=== PATIENT | female | born 1980 | race Caucasian/White ===

== ENCOUNTER → 2016-12-13 | Outpatient (CLI) | payer BC ==
[~2016-12-13] MED LIST: ADDERALL XR20 MG PO; ADDERALL5 MG PO; ASPI325T6 PO; COLACE 100100 MG/CAP PO; CYMBALTA 30MG30 MG PO; CYMBALTA 60MG60 MG PO; DILAUDID 4MG TAB4 MG PO; IMITREX 25MG TA25 MG PO; LEVAQUIN 750MG750 M1 PO; LORTAB 5/500 501 TAB PO; MAXALT5 MG PO; METHADONE H10 MG/TAB PO; MIRENA52 MG IU; PEPCID 20MG TAB20 MG PO; PREDNISONE20 MG PO; PRENATAL VITAMI1 TA5 PO; PRILOSEC 20MG20 MG PO; ULTRAM 50MG TAB50 MG PO; VISTARIL50 MG PO; ZOFRAN 4MG T4 MG/TAB PO; [UNRECOGNIZED DRUG - OTHER]; [UNRECOGNIZED DRUG - OTHER] PO
== END ==
LOC: BHSO 10:13
DX: F33.1 Major depressive disorder, recurrent, moderate (principal)

== ENCOUNTER → 2017-01-18 | Outpatient (CLI) | payer BC | LOC: BHSO 15:13 | DX: F90.0 Attention-deficit hyperactivity disorder, predominantly inattentive type (principal) ==

== ENCOUNTER → 2017-07-26 | Outpatient (CLI) | payer BC | LOC: BHSO 13:15 | DX: F41.1 Generalized anxiety disorder (principal) ==

== ENCOUNTER → 2017-11-14 | Outpatient (CLI) | payer BC | LOC: BHSO 10:21 | DX: F90.0 Attention-deficit hyperactivity disorder, predominantly inattentive type (principal) | CPT/HCPCS: G0463 ==

== ENCOUNTER → 2018-03-06 | Outpatient (CLI) | payer BC | LOC: BHSO 09:04 | DX: F90.0 Attention-deficit hyperactivity disorder, predominantly inattentive type (principal) | CPT/HCPCS: G0463 ==

== ENCOUNTER → 2018-06-07 | Outpatient (CLI) | payer BC | LOC: BHSO 08:57 | DX: F90.0 Attention-deficit hyperactivity disorder, predominantly inattentive type (principal) | CPT/HCPCS: G0463 ==

== ENCOUNTER → 2018-06-15 | Outpatient (CLI) | payer BC | LOC: MC.RAD 15:04 | DX: Z12.31 Encounter for screening mammogram for malignant neoplasm of breast (principal) ==

== ENCOUNTER → 2018-11-23 | Outpatient (CLI) | payer BC | LOC: BHSO 09:37 | DX: F90.0 Attention-deficit hyperactivity disorder, predominantly inattentive type (principal) | CPT/HCPCS: G0463 ==

== ENCOUNTER → 2019-05-17 | Outpatient (CLI) | payer BC | LOC: BHSO 09:39 | DX: F90.0 Attention-deficit hyperactivity disorder, predominantly inattentive type (principal) | CPT/HCPCS: G0463 ==

== ENCOUNTER → 2019-11-20 | Outpatient (CLI) | payer BC | LOC: BHSO 10:00 | DX: F33.41 Major depressive disorder, recurrent, in partial remission (principal) | CPT/HCPCS: G0463 ==

== ENCOUNTER → 2020-04-09 | Outpatient (CLI) | payer BC | LOC: BHSO 15:20 | DX: F33.41 Major depressive disorder, recurrent, in partial remission (principal) | CPT/HCPCS: G0463 ==